=== PATIENT | male | born 1940 | race Caucasian/White ===

== ENCOUNTER 2017-09-01 08:59 | Inpatient (IN) ==
[2017-09-01] MEDS ORDERED: Ipratropium/Albuterol Neb 3 ML IH ONE (09:08)
[2017-09-01] MEDS ORDERED: methylPREDNISolone 125 MG/2 ML VIAL IVP ONE (09:17)
--- NOTE | 2017-09-01 09:43 | Emergency Department Note ---
Disposition Clinical Impression: COPD exacerbation, Pulmonary nodule, Shortness of breath Pulmonary emphysema Qualifiers: Emphysema type: panlobular Qualified Code(s): J43.1 - Panlobular emphysema Disposition: Admitted As Inpatient Condition: Serious Time of Disposition: 13:20 SOB HPI - General Chief Complaint: ED Shortness of Breath/Dyspnea Stated Complaint: ZAID Time Seen by Provider: 09/01/17 09:08 Source: patient Limitations: no limitations Nursing Notes Reviewed: Yes Vital Signs Reviewed: Yes - History of Present Illness Patient is a 77-year-old male sent in by Dr. Cota of pulmonology secondary to concerns of chest pain shortness of breath. Patient per Dr. Cota's note has pulmonary emphysema and a new pulmonary nodule. Patient states his chest pain is sharp mid substernal with radiation to left lateral rib cage and to his spine started 4 weeks ago. Patient describes no dyspnea on exertion with his pain. Patient has no change in sputum. Patient's chest pain lasted about 45 minutes and then goes away without any intervention. Patient states the pain is there its about 10/10. Patient denies diaphoresis. - Related Data Home Medications Medication Instructions Recorded Confirmed Albuterol Sulfate [Ventolin Hfa] 2 puff IH Q4H PRN 09/01/17 09/01/17 Aspirin Enteric Coated [Aspirin EC] 81 mg PO DAILY 09/01/17 09/01/17 Budesonide/Formoterol 160/4.5 2 puff IH BIDR 09/01/17 09/01/17 [Symbicort 160/4.5] Finasteride [Proscar] 5 mg PO DAILY 09/01/17 09/01/17 Tamsulosin [Flomax] 0.4 mg PO DAILY 09/01/17 09/01/17 Trazodone HCl 100 mg PO HS 09/01/17 09/01/17 Allergies Allergy/AdvReac Type Severity Reaction Status Date / Time No Known Allergies Allergy Verified 09/01/17 09:13 All systems ED: reviewed and negative except as stated. Review of Systems: As Per HPI Constitutional: Denies: fever, chills Cardiovascular: Reports: chest pain. Denies: palpitations Respiratory: Reports: cough, sputum production Gastrointestinal: Denies: abdominal pain, nausea, vomiting, diarrhea Genitourinary: Denies: urgency, dysuria, frequency Musculoskeletal: Reports: back pain. Denies: neck pain Neurological: Denies: headache Endocrine: Reports: fatigue Past Medical History - Past Medical History Attestation: Yes The following information was validated with the patient. Source: patient Medical history: Reports: COPD, other Psychiatric history: Reports: no psych history - Social History Smoking Status: Current every day smoker Smokeless Tobacco Status: No Alcohol use: Reports: none Drug use: Reports: none Physical Exam Vital Signs Temperature 97.5 F L 09/01/17 09:05 Pulse Rate 67 09/01/17 09:05 Respiratory Rate 20 09/01/17 09:05 Blood Pressure 122/77 09/01/17 09:05 O2 Sat by Pulse Oximetry 100 09/01/17 09:05 Temperature 97.5 F L 09/01/17 09:05 Pulse Rate 64 09/01/17 09:45 Respiratory Rate 24 09/01/17 09:45 Blood Pressure 139/72 09/01/17 09:45 O2 Sat by Pulse Oximetry 94 09/01/17 09:45 Oxygen Delivery Oxygen Delivery Nasal Cannula 77-year-old male who is alert and oriented 3 and appears short of breath and has mild increased work of breathing but appears to be maintaining his airway well. Patient is very thin almost cachectic appearing. - General Limitations: no limitations General appearance: alert, in no apparent distress - Head Head exam: atraumatic, normocephalic, normal inspection - Eye Eye exam: Present: normal appearance, PERRL, EOMI - ENT ENT exam: normal exam, normal oropharynx, mucous membranes moist - Neck Neck exam: Present: normal inspection, full ROM, trachea midline. Absent: tenderness - Chest Chest inspection: Present: normal inspection, symmetric chest wall rise. Absent : tenderness, rash - Respiratory Respiratory exam: Present: wheezes (Very mild wheeze right lung field) - Cardiovascular Cardiovascular exam: Present: regular rate, normal rhythm, normal heart sounds - Abdominal Exam Abdominal exam: Present: soft, Non-Tender. Absent: tenderness, distention, guarding, rebound, rigidity - Expanded Lower Extremity Exam Hip/Pelvis exam: Present: normal inspection, full ROM Upper leg exam: Present: normal inspection, full ROM Knee exam: Present: normal inspection, full ROM Lower leg exam: Present: normal inspection, full ROM Ankle exam: Present: normal inspection, full ROM Foot/toe exam: Present: normal inspection, full ROM Neurovascular/Tendon exam: Absent: motor deficit, sensory deficit, tendon deficit - Back Exam Back exam: Present: normal inspection, full ROM. Absent: tenderness, CVA tenderness (R), CVA tenderness (L) - Neurological Exam Neurological exam: Present: alert, oriented X3 - Skin Skin exam: Present: warm, dry, intact, normal color Course - Consultations Consultation #1: Dr. Crespo of Radiology states CT recommended for possible lung malignancy with increasing size of lung nodules from recent study taken by the PR. Time: 11:33 Consultation #2: Dr. Pineda the hospitalist has accepted patient for admission. Time: 13:16 Vital Signs Temperature 97.5 F L 09/01/17 09:05 Pulse Rate 67 09/01/17 09:05 Respiratory Rate 20 09/01/17 09:05 Blood Pressure 122/77 09/01/17 09:05 O2 Sat by Pulse Oximetry 100 09/01/17 09:05 Temperature 97.8 F 09/01/17 18:11 Pulse Rate 79 09/01/17 18:11 Respiratory Rate 17 09/01/17 18:11 Blood Pressure 120/61 09/01/17 18:11 O2 Sat by Pulse Oximetry 100 09/01/17 18:11 Oxygen Delivery Oxygen Delivery Nasal Cannula Shortness of Breath/Dyspnea - [facility] Narrative Medical decision making narrative: Patient was previously being seen by head of stock Dr. Cota today and was sent over to the ED for worsening shortness of breath, chest pain, Hypoxia with concerns for possible cardiac etiology and PE. Dr. Cota states patient was hypoxic with levels too low to read on pulse ox while patient was walking. Workup for cardiac issues initiated. So far patient is hypothermic and tachypneic at 24 but is on O2 and maintaining his airway. Patient had DuoNeb. And appears to be doing a little better. The rest patient vital signs are within normal ranges. So far patient's labs showed negative lactic acid and a negative BNP. Patient has no elevation of WBC as well as No anemia. Chest X-Ray 09/01/17 09:09 IMPRESSION: 1. Large left upper lobe opacity has significantly increased in size since 06/15/2017 chest x-ray, and CT chest dated 06/15/2017 (from [facility] - report not available). Findings could represent worsening pulmonary malignancy, with or without superimposed pneumonia. If this has not been previously evaluated, consider PET-CT and/or percutaneous biopsy. 2. Persistent unchanged right lower lung opacity. 3. Findings suggestive of COPD. No evidence of pneumothorax D/ / Celestino Crespo / Celestino Crespo Interpreting Provider: Celestino Crespo After discussion with radiology ordered a CTA of the chest to get better identification of a lung nodule and to rule in or out PE. Patient agrees to CTA. The patient that his creatinine is clearly elevated but will start on IV fluid hydration which is helpful in reducing insult to the kidneys, right now we have increased benefits versus risk concerning life-threatening nature of possible PE which clinically outweighs the risk of insult to kidneys at this time. Patient states he understands and agrees to treatment plan. CTA and chest shows no PE but shows enlarging of the patient's pulmonary mass with concerns for malignancy. CT shows dramatic interval increase of pulmonary nodules. Decision to admit was already discussed with the patient and he understands and agrees. Discussed patient's progress with hospitalist Dr. Pineda who agrees to patient admission. - Lab Data Lab results reviewed: Yes I reviewed the patient's lab results. Lab results narrative: Short CBC 09/01/17 Range/Units 09:35 WBC 7.8 (4.3-11.1) K/mcL Hgb 13.1 (12.9-16.9) g/dL Hct 39.9 (37.5-50.1) % Plt Count 175 (140-400) K/mcL Neutrophils # 5.7 (1.6-8.9) K/mcL BMP 09/01/17 Range/Units 10:26 Sodium 142 (136-145) mEq/L Potassium 4.0 (3.5-4.5) mEq/L Chloride 107 (98-109) mEq/L Carbon Dioxide 26 (19-29) mEq/L BUN 24 (8-26) mg/dL Creatinine 1.27 H (0.72-1.25) mg/dL Glucose 98 (70-99) mg/dL Calcium 9.5 (8.6-10.8) mg/dL Cardiac Enzymes 09/01/17 Range/Units 09:35 Troponin I 0.00 (0-0.03) ng/mL Result diagrams: 09/01/17 09:35 09/01/17 10:26 Lab Results 09/01/17 09/01/17 09/01/17 Range/Units 09:35 09:35 09:35 WBC 7.8 (4.3-11.1) K/mcL RBC 4.43 (4.19-5.50) M/mcL Hgb 13.1 (12.9-16.9) g/dL Hct 39.9 (37.5-50.1) % MCV 90.1 (83.0-100.0) fL MCH 29.6 (28.0-33.3) pg MCHC 32.8 (31.6-35.5) g/dL RDW 13.9 (11.5-14.5) % Plt Count 175 (140-400) K/mcL MPV 8.7 L (9.4-12.4) fL Immature Gran % 0.1 (0-4) % Seg Neutrophils % 73.0 % Lymphocytes % 16.3 % Monocytes % 9.5 % Eosinophils % 0.6 % Basophils % 0.5 % Neutrophils # 5.7 (1.6-8.9) K/mcL Lymphocytes # 1.3 (0.6-4.6) K/mcL Monocytes # 0.7 (0.0-1.3) K/mcL Eosinophils # 0.1 (0.0-0.6) K/mcL Basophils # 0.0 (0.0-0.2) K/mcL Sodium (136-145) mEq/L Potassium (3.5-4.5) mEq/L Chloride (98-109) mEq/L Carbon Dioxide (19-29) mEq/L BUN (8-26) mg/dL Creatinine (0.72-1.25) mg/dL Est GFR ( Amer) (> 60) Est GFR (Non-Af Amer) (> 60) BUN/Creatinine Ratio (6-26) Glucose (70-99) mg/dL Calculated Osmolality (280-300) Lactic Acid 1.6 (0.5-2.2) mmol/L Calcium (8.6-10.8) mg/dL Troponin I 0.00 (0-0.03) ng/mL B-Natriuretic Peptide (0-100) pg/mL Specimen Rejected 09/01/17 09/01/17 09/01/17 Range/Units 09:35 09:35 10:26 WBC (4.3-11.1) K/mcL RBC (4.19-5.50) M/mcL Hgb (12.9-16.9) g/dL Hct (37.5-50.1) % MCV (83.0-100.0) fL MCH (28.0-33.3) pg MCHC (31.6-35.5) g/dL RDW (11.5-14.5) % Plt Count (140-400) K/mcL MPV (9.4-12.4) fL Immature Gran % (0-4) % Seg Neutrophils % % Lymphocytes % % Monocytes % % Eosinophils % % Basophils % % Neutrophils # (1.6-8.9) K/mcL Lymphocytes # (0.6-4.6) K/mcL Monocytes # (0.0-1.3) K/mcL Eosinophils # (0.0-0.6) K/mcL Basophils # (0.0-0.2) K/mcL Sodium 142 (136-145) mEq/L Potassium 4.0 (3.5-4.5) mEq/L Chloride 107 (98-109) mEq/L Carbon Dioxide 26 (19-29) mEq/L BUN 24 (8-26) mg/dL Creatinine 1.27 H (0.72-1.25) mg/dL Est GFR ( Amer) > 60 (> 60) Est GFR (Non-Af Amer) 55 L (> 60) BUN/Creatinine Ratio 19 (6-26) Glucose 98 (70-99) mg/dL Calculated Osmolality 298 (280-300) Lactic Acid (0.5-2.2) mmol/L Calcium 9.5 (8.6-10.8) mg/dL Troponin I (0-0.03) ng/mL B-Natriuretic Peptide 24 (0-100) pg/mL Specimen Rejected Hemolyzed - Radiology Data Radiology results reviewed: Yes I reviewed the patient's radiology results. Chest X-Ray 09/01/17 09:09 IMPRESSION: 1. Large left upper lobe opacity has significantly increased in size since 06/15/2017 chest x-ray, and CT chest dated 06/15/2017 (from [facility] - report not available). Findings could represent worsening pulmonary malignancy, with or without superimposed pneumonia. If this has not been previously evaluated, consider PET-CT and/or percutaneous biopsy. 2. Persistent unchanged right lower lung opacity. 3. Findings suggestive of COPD. No evidence of pneumothorax D/ / Celestino Crespo / Celestino Crespo Interpreting Provider: Celestino Crespo Chest CTA 09/01/17 11:44 IMPRESSION: No evidence of pulmonary embolism Significant interval increase in left upper lobe mass concerning for worsening malignancy. New 14 mm pulmonary nodule within medial left upper lobe is nonspecific, but may represent additional focus of metastatic disease, or primary lung cancer. Consider PET-CT for staging and tissue diagnosis, if not already performed at another institution. Interval increasing ill-defined soft tissue density within superior medianstinum at the level of thoracic inlet currently measuring 23 x 24 mm. This could represent a metastatic deposit. Small left pleural effusion. Emphysema. D/ / Celestino Crespo / Celestino Crespo Interpreting Provider: Celestino Crespo - EKG Data EKG attestation: Yes I reviewed and interpreted this EKG. EKG results narrative: EKG taken 09/01/2017 at 0 922 shows sinus rhythm with no acute ST depressions any leads. Patient shows mild [address] segment and leads 2, and 3 this and makes criteria for STEMI but will correlate with other labs. This is not shown on previous EKG taken 02/12/2012.
[2017-09-01 09:50] LABS: Basophils % 0.5 %; Eosinophils # 0.1 K/mcL (0.0-0.6); Eosinophils % 0.6 %; Hematocrit 39.9 % (37.5-50.1); Hemoglobin 13.1 g/dL (12.9-16.9); Immature Granulocytes % 0.1 % (0-4); Lymphocytes # 1.3 K/mcL (0.6-4.6); Lymphocytes % 16.3 %; Mean Corpuscular HGB Conc 32.8 g/dL (31.6-35.5); Mean Corpuscular Hemoglobin 29.6 pg (28.0-33.3); Mean Corpuscular Volume 90.1 fL (83.0-100.0); Mean Platelet Volume 8.7 fL (9.4-12.4); Monocytes # 0.7 K/mcL (0.0-1.3); Monocytes % 9.5 %; Neutrophils # 5.7 K/mcL (1.6-8.9); Platelet Count 175 K/mcL (140-400); Red Blood Count 4.43 M/mcL (4.19-5.50); Red Cell Distribution Width 13.9 % (11.5-14.5)
[2017-09-01] MEDS ORDERED: Aspirin 81 MG TAB.CHEW PO ONE (10:03)
[2017-09-01] MEDS ORDERED: Nitroglycerin 0.4 MG TAB.SUBL SL PRN (10:04)
[2017-09-01 10:53] LABS: BUN/Creatinine Ratio 19 (6-26); Blood Urea Nitrogen 24 mg/dL (8-26); Calcium 9.5 mg/dL (8.6-10.8); Carbon Dioxide 26 mEq/L (19-29); Chloride 107 mEq/L (98-109); Glucose 98 mg/dL (70-99); Osmolality,Calculated 298 (280-300); Sodium 142 mEq/L (136-145); eGFR For African Americans > 60 (> 60); eGFR For Non-African Americans 55 (> 60)
[2017-09-01] MEDS ORDERED: 0.9 % Sodium Chloride 1,000 ML IVC ONE (11:08)
--- NOTE | 2017-09-01 11:57 | Emergency Department Note ---
START Narrative - START START: I examined this patient and my medical decision-making was reviewed with the PACKING FLOOR WORKER/PA/Advanced Practice Nurse/Resident Physician. I agree with the documented findings, disposition and treatment plan as described except to the extent set forth below. ED attending: Patient's emergency medicine resident Dr. RODRIGUEZ. Please see copy of this note for H&P evaluation and management and ED disposition. We both had independent [id number] time in contact with this patient. Briefly 77-year-old male [facility] patient referred to pulmonary for lung nodule. Was seen by pulmonary Dr. Fung this morning. Was sent to the ER for chest discomfort and hypoxia upon mild exertion. Patient stated that he had CT with contrast to look for and possibly his pulmonary nodule. Patient has pleuritic pain we will be repeating CT with contrast. Troponin is negative BNP is within normal limits CBC within normal limits. Plan is admission. Provided 40 minutes critical care services this patient. Disposition pending
[2017-09-01] MEDS ORDERED: Acetaminophen 325 MG TABLET PO PRN (14:58)
[2017-09-01] MEDS ORDERED: Naloxone 0.4 MG/ML INJ IVP PRN (14:58)
--- NOTE | 2017-09-01 15:29 | Internal Med History&Physical ---
Date of Encounter: 09/01/17 Time of Encounter: 15:15 Assessment and Plan (1) Lung mass Current visit: Yes Status: Acute Patient sent to ED from Dr. Ness's office with shortness of breath and hypoxia. CXR and CTA today showed significant increase in size of left upper lobe mass, concerning or worsening malignancy. Patient also reports decreased appetite, unplanned 10lb weight loss, night sweats, also concerning for malignancy. Consulted pulmonology, Dr. Johnson evaluated patient and recommends CT guided biopsy in interventional radiology. (2) Acute respiratory failure with hypoxia Current visit: Yes Status: Acute Patient was sent to ED today from appointment with Dr. Ness with shortness of breath and hypoxia. Patient with recent new diagnosis of COPD and hypoxia may be chronic in nature. CTA was negative for PE. CXR and CTA showed significant increase in left upper lung mass, concerning for malignancy. Given patient's risk factors of long-standing smoking and hypertension, will also get an echocardiogram. Titrate oxygen to maintain saturation > 88%. Nebulizers and antibiotics for COPD exacerbation. (3) COPD (chronic obstructive pulmonary disease) Current visit: Yes Status: Acute Patient with recent, new diagnosis of COPD. He is reporting worsening shortness of breath, dry cough, and he was hypoxic today. Duonebs QID albuterol nebulizer Q2h prn budesonide/formotorol BID Solu-medrol 40mg IVP BID and Qualifiers: COPD type: COPD with acute exacerbation Qualified Code(s): J44.1 - Chronic obstructive pulmonary disease with (acute) exacerbation (4) Tobacco abuse Current visit: Yes Status: Acute Patient smoked 2PPD for 50 years. He has cut back to only 1 cigarette per day 5 days a week. Encouraged him to keep working on smoking cessation. Smoking cessation education ordered. (5) DVT prophylaxis Current visit: Yes Status: Acute anti-embolic stockings heparin SQ TID Internal Medicine - H&P: HPI Chief complaint: shortness of breath Admitted From: Emergency Dept Plans for Post Hospital Care: Home History of present illness: Mr. Narayan is a 77 year old male with hypertension, COPD, was sent over to the ED from Dr. Ness's office with shortness of breath and hypoxia. He reports that he has had increasing shortness of breath over the last 2-3 months, and had been referred to Dr. Ness from the [place] for evaluation of a lung nodule found on CT in May. Patient was short of breath and hypoxic on his evaluation and he was sent to the ED. Patient reports occasional lightheadedness, chest pain. He also reports dry cough, night sweats, decreased appetite and unplanned weight loss of 10 lbs over the last few months. He denies any palpitations, nausea, vomiting, diarrhea or abdominal pain. Evaluation in the ED included a CXR which showed large left upper lobe opacity with significant increase in size since 06/15 exam as well as persistent , unchanged RLL opacity. CTA demonstrated no evidence of pulmonary embolism and also showed significant increase in left upper lobe mass, concerning for worsening malignancy and a new 14mm pulmonary nodule within the medial left upper lobe. Troponin was negative at 0.00. BNP was normal at 24. Creatinine was mildly elevated at 1.27. ekg was determined to be non-ischemic. On exam, patient alert and oriented in no distress. Heart had regular rate and rhythm. Lungs with distant air sounds and mild scattered wheezes. Abdomen soft, non-tender with positive bowel sounds. No peripheral edema. Past Med Surg Social Fam HX - Past Medical History Medical history: COPD, other Psychiatric history: no psych history - Past Surgical History Surgical History: vascular surgery (patient reports aneurysm repair) - Social History Smoking Status: Current every day smoker (130 pack year history) Smokeless Tobacco Status: No Alcohol use: none Drug use: none - Family History Mother History Unknown: Yes Adopted: No (patient lost touch with all family in his youth) Internal Medicine - H&P: Meds Albuterol Sulfate [Ventolin Hfa] 2 puff IH Q4H PRN 09/01/17 [History] Aspirin Enteric Coated [Aspirin EC] 81 mg PO DAILY 09/01/17 [History] Budesonide/Formoterol 160/4.5 [Symbicort 160/4.5] 2 puff IH BIDR 09/01/17 [ History] Finasteride [Proscar] 5 mg PO DAILY 09/01/17 [History] Tamsulosin [Flomax] 0.4 mg PO DAILY 09/01/17 [History] Trazodone HCl 100 mg PO HS 09/01/17 [History] 3 Allergy/AdvReac Type Severity Reaction Status Date / Time No Known Allergies Allergy Verified 09/01/17 09:13 All Systems PM: A 10-system review of systems was performed and is negative for pertinent findings except as documented above in the HPI. - Constitutional Constitutional: anorexia, night sweats, weight loss, no chills, no fever(s) - EENT Eyes: no change in vision, no discharge, no pain, no photophobia Ears: no ear discharge, no ear pain, no tinnitus Nose, mouth and throat: no dysphagia, no nasal discharge, no neck pain, no sore throat - Cardiovascular Cardiovascular ROS IM: chest pain, dyspnea, dyspnea on exertion, lightheadedness , no diaphoresis, no palpitations, no syncope - Respiratory Respiratory: cough, dyspnea, dyspnea on exertion, pain with cough, no hemoptysis , no wheezing, no excessive phlegm production - Gastrointestinal Gastrointestinal: no abdominal pain, no diarrhea, no hematemesis, no hematochezia, no melena, no nausea, no vomiting - Musculoskeletal Musculoskeletal ROS IM: no numbness, no tingling - Integumentary Integumentary IM: no rash, no unusual bruising - Neurological Neurological ROS: no confusion, no convulsions, no focal weakness, no numbness, no tingling, no tremor(s) - Hematologic/Lymphatic Hematologic/Lymphatic: no easy bruising - Constitutional Vitals: Temp Pulse Resp BP Pulse Ox 97.5 F L 62 16 121/117 100 09/01/17 14:27 09/01/17 14:27 09/01/17 14:27 09/01/17 14:27 09/01/17 14:27 General appearance: Present: A&O X 3, pleasant, no acute distress - Head Head exam: Present: atraumatic, normocephalic - Eye Eye exam: Present: PERRL, conjuntiva pink, sclera anicteric Pupils: Present: PERRL - Neck Neck exam general surgery: Present: supple, trachea midline. Absent: lymphadenopathy - Respiratory Respiratory exam: Present: decreased breath sounds, wheezes. Absent: accessory muscle use, rales, rhonchi - Cardiovascular Cardiovascular exam: Present: RRR, +S1, +S2. Absent: diastolic murmur, gallop, rubs, systolic murmur - GI/Abdominal GI/Abdominal exam: Present: normal bowel sounds, soft, no peritoneal signs. Absent: distended, tenderness - Extremities Exam Extremities exam: Present: warm, radial pulses palpable and symmetrical. Absent : calf tenderness, cyanotic, pedal edema - Neurological Exam Neurological exam: Present: CN II-XII intact, oriented X3, no focal deficits. Absent: pronater drift, facial droop, speech deficit - Skin Skin exam: Present: dry, intact Internal Med - H&P Results - Labs CBC & Chem 7: 09/01/17 09:35 09/01/17 10:26 Labs: All Lab Results (24 Hours) 09/01/17 09/01/17 09/01/17 Range/Units 09:35 09:35 09:35 WBC 7.8 (4.3-11.1) K/mcL RBC 4.43 (4.19-5.50) M/mcL Hgb 13.1 (12.9-16.9) g/dL Hct 39.9 (37.5-50.1) % MCV 90.1 (83.0-100.0) fL MCH 29.6 (28.0-33.3) pg MCHC 32.8 (31.6-35.5) g/dL RDW 13.9 (11.5-14.5) % Plt Count 175 (140-400) K/mcL MPV 8.7 L (9.4-12.4) fL Immature Gran % 0.1 (0-4) % Seg Neutrophils % 73.0 % Lymphocytes % 16.3 % Monocytes % 9.5 % Eosinophils % 0.6 % Basophils % 0.5 % Neutrophils # 5.7 (1.6-8.9) K/mcL Lymphocytes # 1.3 (0.6-4.6) K/mcL Monocytes # 0.7 (0.0-1.3) K/mcL Eosinophils # 0.1 (0.0-0.6) K/mcL Basophils # 0.0 (0.0-0.2) K/mcL Sodium (136-145) mEq/L Potassium (3.5-4.5) mEq/L Chloride (98-109) mEq/L Carbon Dioxide (19-29) mEq/L BUN (8-26) mg/dL Creatinine (0.72-1.25) mg/dL Est GFR ( Amer) (> 60) Est GFR (Non-Af Amer) (> 60) BUN/Creatinine Ratio (6-26) Glucose (70-99) mg/dL Calculated Osmolality (280-300) Lactic Acid 1.6 (0.5-2.2) mmol/L Calcium (8.6-10.8) mg/dL Troponin I 0.00 (0-0.03) ng/mL B-Natriuretic Peptide (0-100) pg/mL Specimen Rejected 09/01/17 09/01/17 09/01/17 Range/Units 09:35 09:35 10:26 WBC (4.3-11.1) K/mcL RBC (4.19-5.50) M/mcL Hgb (12.9-16.9) g/dL Hct (37.5-50.1) % MCV (83.0-100.0) fL MCH (28.0-33.3) pg MCHC (31.6-35.5) g/dL RDW (11.5-14.5) % Plt Count (140-400) K/mcL MPV (9.4-12.4) fL Immature Gran % (0-4) % Seg Neutrophils % % Lymphocytes % % Monocytes % % Eosinophils % % Basophils % % Neutrophils # (1.6-8.9) K/mcL Lymphocytes # (0.6-4.6) K/mcL Monocytes # (0.0-1.3) K/mcL Eosinophils # (0.0-0.6) K/mcL Basophils # (0.0-0.2) K/mcL Sodium 142 (136-145) mEq/L Potassium 4.0 (3.5-4.5) mEq/L Chloride 107 (98-109) mEq/L Carbon Dioxide 26 (19-29) mEq/L BUN 24 (8-26) mg/dL Creatinine 1.27 H (0.72-1.25) mg/dL Est GFR ( Amer) > 60 (> 60) Est GFR (Non-Af Amer) 55 L (> 60) BUN/Creatinine Ratio 19 (6-26) Glucose 98 (70-99) mg/dL Calculated Osmolality 298 (280-300) Lactic Acid (0.5-2.2) mmol/L Calcium 9.5 (8.6-10.8) mg/dL Troponin I (0-0.03) ng/mL B-Natriuretic Peptide 24 (0-100) pg/mL Specimen Rejected Hemolyzed - Diagnostic Studies Chest x-ray Additional comments: Chest X-Ray 09/01/17 09:09 IMPRESSION: 1. Large left upper lobe opacity has significantly increased in size since 06/15/2017 chest x-ray, and CT chest dated 06/15/2017 (from [facility] - report not available). Findings could represent worsening pulmonary malignancy, with or without superimposed pneumonia. If this has not been previously evaluated, consider PET-CT and/or percutaneous biopsy. 2. Persistent unchanged right lower lung opacity. 3. Findings suggestive of COPD. No evidence of pneumothorax D/ / Celestino Crespo / Celestino Crespo Interpreting Provider: Celestino Crespo CT scan - chest Additional comments: Chest CTA 09/01/17 11:44 IMPRESSION: No evidence of pulmonary embolism Significant interval increase in left upper lobe mass concerning for worsening malignancy. New 14 mm pulmonary nodule within medial left upper lobe is nonspecific, but may represent additional focus of metastatic disease, or primary lung cancer. Consider PET-CT for staging and tissue diagnosis, if not already performed at another institution. Interval increasing ill-defined soft tissue density within superior medianstinum at the level of thoracic inlet currently measuring 23 x 24 mm. This could represent a metastatic deposit. Small left pleural effusion. Emphysema. D/ / Celestino Crespo / Celestino Crespo Interpreting Provider: Celestino Crespo
--- NOTE | 2017-09-01 15:39 | Pulmonology Consult Note ---
Date of Encounter: 09/01/17 Time of Encounter: 15:32 Assessment and Plan (1) Acute respiratory failure with hypoxia Current Visit: Yes Status: Acute My suspicion with this patient is that he has severe underlying hypoxemia with exertion and this was uncovered today but I doubt that this is a new phenomenon for the patient. CTA was performed in the ED negative for PE his brain atretic peptide was also not elevated which makes CHF less likely but still possible. I suspect he has some degree of underlying coronary artery disease but how much that is impacting his current presentation if at all is unclear at this time although troponin is negative. I suspect that the overall cause of his hypoxemia is related to underlying pulmonary emphysema and lung cancer. Recommend supplemental oxygen to keep saturation greater than 88% at all times there is no need to keep saturation in this patient greater than 92%. Command formal echocardiogram to evaluate for any evidence of underlying heart failure as well as possible pulmonary hypertension although not suspicious from CTA which showed a normal size of the pulmonary artery and right ventricle. (2) Lung mass Current Visit: Yes Status: Acute He has a large approximately 5.3 x 3.7 lung mass in the left upper lobe this would be easily accessed by CT-guided biopsy performed by interventional radiology (unfortunately this could not be performed until Monday at the earliest). I do not see any significant lymphadenopathy that would be amenable to bronchoscopy with endobronchial ultrasound and fine-needle aspiration. Clearly the patient would not have to necessarily remain in the hospital to have this procedure done however if it could be done early on Monday this would certainly decrease any further wait time in the initial evaluation and workup of his presumed lung cancer given delayed that has already happened I favor this approach (3) COPD (chronic obstructive pulmonary disease) Current Visit: Yes Status: Acute Patient clearly has radiographic evidence of emphysema and subjective feelings of dyspnea. He does not have any increase in sputum production or change in color he does have increased shortness of breath which I suspect is more disease progression per se as opposed to acute exacerbation. Nevertheless he could likely benefit from at least a short course of antral steroids and scheduled bronchodilators I do not think that he would necessarily benefit from antimicrobials at this time. Please start prednisone 40 mg daily by mouth I favor approaching 40 mg daily for 5 days then stop this could eventually be tapered over a couple of weeks if patient has significant benefit Schedule duo nebs every 4-6 hours with supplemental albuterol treatments on an as-needed basis He can be discharged with a metered-dose inhaler such as Symbicort 160/4.52 puffs twice a day and he should have teaching by the respiratory therapist in the proper use of this medication. Additionally he should be discharged with a short acting beta agonist such as albuterol "rescue inhaler" Qualifiers: Emphysema type: unspecified Qualified Code(s): J43.9 - Emphysema, unspecified (4) Pleural effusion Current Visit: Yes Status: Acute This is as very small left-sided pleural effusion which at least periodically could represent a malignant pleural effusion however given the size I am dubious that this is the case. Elasticized is such that it would not be possible to perform bedside thoracentesis to aspirate this at the very most he would need CT-guided biopsy do not favor this in the acute setting especially given his underlying emphysema I think that the risk benefit ratio here favors continued monitoring (5) Elevated serum creatinine Current Visit: Yes Status: Acute Unclear what the patient's baseline serum creatinine has however it is elevated today be worthwhile to determine if the [facility] has previous records related to this. Given his recent contrast load and baseline renal dysfunction a low rate infusion of normal saline over the next 24 hours to prevent contrast-induced nephropathy is a reasonable approach. (6) Tobacco abuse Current Visit: Yes Status: Acute I counseled the patient on the need to abstain from tobacco completely. Encouragingly he is down to a cigarette every 4-5 days he does have nicotine patches at home and they help he is not currently having any cravings but he should be provided with nicotine replacement as needed he seems highly motivated to stop and I recommend patient enroll in smoking cessation group therapy at the [facility] which is a very effective program. 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 Because of the degree of hypoxemia on this test he was referred to the emergency department for further evaluation. Initially he was being evaluated for a left upper lobe lung mass this was a pleural-based lesion that was first identified at the [facility] in May and noted to around 3.7cm however he did not have any follow-up with regards to this lesion until today's clinic appointment. Clinically is noted that he has had at least a 10 pound weight loss as of late and has had increasing shortness of breath with intermittent chest pain this is not associated with exertion he denies any sort of hemoptysis night sweats fevers chills joint pains in the interim. Notable for him is that about a year ago he was able to walk about a block without any problem now he is unable to walk even short distances without getting dyspneic. In the emergency department a CT angiogram was performed which was negative for filling defect but notable for interval increase in size of the left upper lobe lung mass and additional increase in size of lung nodules as well concerning for primary lung malignancy He started smoking at the age of 11 and has smoked up to 2 packs a day. He served in [place] (after the conflict) and in [place] (during the conflict) where he likely had some exposure to agent orange. 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 He does not have any personal history of malignancy nor family history of lung cancer that he is aware of. He does not drink or use illicit drugs he does not have any exotic pets no recent travel outside the [place] or sick contacts. Past Med Surg Social Fam HX - Past Medical History Medical history: COPD, other Psychiatric history: no psych history - Social History Smoking Status: Current every day smoker Smokeless Tobacco Status: No Alcohol use: none Drug use: none Medications and Allergies Albuterol Sulfate [Ventolin Hfa] 2 puff IH Q4H PRN 09/01/17 [History] Aspirin Enteric Coated [Aspirin EC] 81 mg PO DAILY 09/01/17 [History] Budesonide/Formoterol 160/4.5 [Symbicort 160/4.5] 2 puff IH BIDR 09/01/17 [ History] Finasteride [Proscar] 5 mg PO DAILY 09/01/17 [History] Tamsulosin [Flomax] 0.4 mg PO DAILY 09/01/17 [History] Trazodone HCl 100 mg PO HS 09/01/17 [History] 3 Allergy/AdvReac Type Severity Reaction Status Date / Time No Known Allergies Allergy Verified 09/01/17 09:13 All Systems: A 10-system review of systems was performed and is negative for pertinent findings except as documented above in the HPI. Physical Examination Vital Signs: Vital Signs, Last 4 Hours Temp Pulse Resp BP Pulse Ox 09/01/17 14:27 97.5 F L 62 16 121/117 100 09/01/17 14:06 20 118/61 09/01/17 13:30 76 22 115/86 98 General appearance: no acute distress, alert, other (He is thin but not cachectic appearing ) Eyes: nonicteric ENT: oropharynx moist, oropharynx dry Neck: no lymphadenopathy Effort: normal Auscultation: bilateral: diminished breath sounds Cardiovascular: regular rate and rhythm Gastrointestinal: normoactive bowel sounds Integumentary: normal Extremities: no cyanosis, no edema, no clubbing Musculoskeletal: no deformities normal mental status, non-focal exam mood appropriate Results - Laboratory Findings CBC and BMP: 09/01/17 09:35 09/01/17 10:26 Abnormal lab findings: Abnormal lab results MPV 8.7 fL (9.4-12.4) L 09/01/17 09:35 Creatinine 1.27 mg/dL (0.72-1.25) H 09/01/17 10:26 Est GFR (Non-Af Amer) 55 (> 60) L 09/01/17 10:26 - Diagnostic Findings Chest x-ray: report reviewed, image reviewed CT scan - chest: report reviewed, image reviewed Consult Discharge Plan - Plan Referrals: NONE,PCP [Primary Care Provider] - Marycruz Palmer [Family Provider] -
[2017-09-01] MEDS ORDERED: Azithromycin 500 MG in D5% in Water 250 ML IVPB SCH (16:00)
[2017-09-01] MEDS: Ipratropium/Albuterol Neb 3 ML IH SCH ×2 (16:01→22:26)
[2017-09-01] MEDS: MethylPREDNISolone 40 MG/ML VIAL IVP SCH (17:34)
[2017-09-01] MEDS: traZODone 50 MG TABLET PO SCH (20:33)
[2017-09-01] MEDS: Budesonide/Formoterol 160/4.5 MDI IH SCH (22:28)
[2017-09-02] MEDS: *HR* Heparin 5,000 UNIT/ML VIAL SQ SCH ×4 (00:06→20:27)
[2017-09-02] MEDS: Ipratropium/Albuterol Neb 3 ML IH SCH ×4 (04:30→22:21)
[2017-09-02] MEDS: MethylPREDNISolone 40 MG/ML VIAL IVP SCH (05:52)
[2017-09-02 07:28] LABS: BUN/Creatinine Ratio 21 (6-26); Blood Urea Nitrogen 26 mg/dL (8-26); Calcium 9.2 mg/dL (8.6-10.8); Carbon Dioxide 25 mEq/L (19-29); Chloride 108 mEq/L (98-109); Glucose 207 mg/dL (70-99); Osmolality,Calculated 299 (280-300); Potassium 4.6 mEq/L (3.5-4.5); Sodium 139 mEq/L (136-145); eGFR For African Americans > 60 (> 60); eGFR For Non-African Americans 56 (> 60)
[2017-09-02 07:44] LABS: Basophils % 0.1 %; Hematocrit 34.6 % (37.5-50.1); Immature Granulocytes % 0.4 % (0-4); Lymphocytes # 0.6 K/mcL (0.6-4.6); Lymphocytes % 3.3 %; Mean Corpuscular HGB Conc 32.9 g/dL (31.6-35.5); Mean Corpuscular Hemoglobin 29.4 pg (28.0-33.3); Mean Corpuscular Volume 89.2 fL (83.0-100.0); Mean Platelet Volume 8.9 fL (9.4-12.4); Monocytes % 4.5 %; Platelet Count 187 K/mcL (140-400); Red Blood Count 3.88 M/mcL (4.19-5.50); Red Cell Distribution Width 13.7 % (11.5-14.5); Segmented Neutrophils % 91.7 %
[2017-09-02 07:45] LABS: Hemoglobin 11.4 g/dL (12.9-16.9); Monocytes # 0.8 K/mcL (0.0-1.3); Neutrophils # 15.2 K/mcL (1.6-8.9)
--- NOTE | 2017-09-02 09:29 | Pulmonology Progress Note ---
Date of Encounter: 09/02/17 Time of Encounter: 09:27 Assessment and Plan (1) Acute respiratory failure with hypoxia Current Visit: Yes Status: Acute Continue to wean oxygen to keep saturation greater than 88%-92% at all times (2) Lung mass Current Visit: Yes Status: Acute This is suspicious for primary lung malignancy plan for CT-guided biopsy on Monday with interventional radiology (3) COPD (chronic obstructive pulmonary disease) Current Visit: Yes Status: Acute Possible acute exacerbation continue enteral steroids prednisone 40 mg 5 days consideration of a longer taper based upon clinical course. Continue scheduled bronchodilators Qualifiers: COPD type: COPD with acute exacerbation Qualified Code(s): J44.1 - Chronic obstructive pulmonary disease with (acute) exacerbation (4) Pleural effusion Current Visit: Yes Status: Acute This is a small left-sided pleural effusion recommend monitoring at this time (5) Elevated serum creatinine Current Visit: Yes Status: Acute Stable overnight. Concern for contrast-induced nephropathy givenlikely underlying chronic kidney injury with plan for 24 hours of infusion of crystalloid (normal saline) (6) Tobacco abuse Current Visit: Yes Status: Acute Tobacco abuse counseling given continue nicotine replacement as needed (7) DVT prophylaxis Current Visit: Yes Status: Acute Recommend chemical DVT prophylaxis while inpatient unless contraindication arises Subjective Principal diagnosis: Hypoxic Respiratory Failure Interval history: Says in general breathing has improved overnight. Oxygen saturation has been excellent on 2 L nasal cannula Piter can be weaned down further. Remains afebrile. His only complaint is that he has been Without food for a possible procedure Objective PUL Vital signs: Last Vital Signs Temp 97.8 F 09/02/17 07:00 Pulse 71 09/02/17 07:00 Resp 16 09/02/17 07:00 BP 102/63 09/02/17 07:00 Pulse Ox 100 09/02/17 07:00 General appearance: no acute distress Auscultation: bilateral: clear Cardiovascular: regular rate and rhythm Extremities: no cyanosis, no edema, no clubbing normal mental status, non-focal exam Results - Laboratory Findings CBC and BMP: 09/02/17 06:54 09/02/17 06:54 Abnormal lab findings: Abnormal lab results WBC 16.6 K/mcL (4.3-11.1) H D 09/02/17 06:54 RBC 3.88 M/mcL (4.19-5.50) L 09/02/17 06:54 Hgb 11.4 g/dL (12.9-16.9) L D 09/02/17 06:54 Hct 34.6 % (37.5-50.1) L 09/02/17 06:54 MPV 8.9 fL (9.4-12.4) L 09/02/17 06:54 Neutrophils # 15.2 K/mcL (1.6-8.9) H 09/02/17 06:54 Potassium 4.6 mEq/L (3.5-4.5) H 09/02/17 06:54 Est GFR (Non-Af Amer) 56 (> 60) L 09/02/17 06:54 Glucose 207 mg/dL (70-99) H 09/02/17 06:54 - Clinical Findings Intake & Output: Intake & Output 09/01/17 09/02/17 09/02/17 23:59 07:59 15:59 Intake Total 250 / 250 0 / 0 Output Total 400 / 400 Balance 250 / 250 -400 / -400 Weight 56.518 kg - VTE Documentation of Mechanical Device: Graduated compression elastic hosiery Consult Discharge Plan - Plan Referrals: NONE,PCP [Primary Care Provider] - Marycruz Palmer [Family Provider] -
[2017-09-02] MEDS: Finasteride 5 MG TABLET PO SCH (09:36)
[2017-09-02] MEDS: Aspirin Enteric Coated 81 MG Tablet PO SCH (09:36)
--- NOTE | 2017-09-02 10:58 | Internal Med Progress Note ---
Date of Encounter: 09/02/17 Time of Encounter: 10:56 - Assessment and plan (1) Lung mass Current Visit: Yes Status: Acute Assessment and plan: Pulmonary consultation appreciated patient to be scheduled for CTA guided lung mass biopsy on Monday by Interventional radiology (2) Pulmonary nodule Current Visit: Yes Status: Chronic (3) COPD exacerbation Current Visit: Yes Status: Acute Assessment and plan: Continue systemic steroids, bronchodilator support O2 supplementation monitor O2 sat, goal O2 sat: 89-92% (4) Pulmonary emphysema Current Visit: Yes Status: Chronic Qualifiers: Emphysema type: unspecified Qualified Code(s): J43.9 - Emphysema, unspecified (5) Pleural effusion Current Visit: Yes Status: Acute Assessment and plan: stable, will continue to monitor (6) Elevated serum creatinine Current Visit: Yes Status: Resolved Assessment and plan: resolved at this time will continue to monitor (7) Tobacco abuse Current Visit: Yes Status: Acute Assessment and plan: Smoking cessation counseling provided pt reports of cutting down and trying to quit refused nicotine replacement therapy (8) DVT prophylaxis Current Visit: Yes Status: Acute Assessment and plan: Heparin SQ - Subjective Interval history: Patient seen and examined at bedside. Resting comfortably in bed and denies any distress at this time. Tentative CTA guided lung mass biopsy on Monday by IR. - Constitutional Vitals: Temp Pulse Resp BP Pulse Ox 97.8 F 71 16 102/63 100 09/02/17 07:00 09/02/17 07:00 09/02/17 07:00 09/02/17 07:00 09/02/17 07:00 General appearance: Present: cooperative, A&O X 3, pleasant, no acute distress, underweight - Head Head exam: Present: atraumatic, normocephalic - Eye Eye exam: Present: conjuntiva pink, sclera anicteric - Respiratory Respiratory exam: Absent: respiratory distress, wheezes - Cardiovascular Cardiovascular exam: Present: RRR, +S1, +S2. Absent: diastolic murmur, gallop, rubs, systolic murmur - GI/Abdominal GI/Abdominal exam: Present: normal bowel sounds, soft, no peritoneal signs. Absent: distended, tenderness - Extremities Exam Extremities exam: Present: warm, radial pulses palpable and symmetrical. Absent : calf tenderness, cyanotic, pedal edema - Neurological Exam Neurological exam: Present: alert, oriented X3 - Psychiatric Psychiatric exam: Present: normal affect, normal mood Internal Medicine: Result - Labs CBC & Chem 7: 09/02/17 06:54 09/02/17 06:54 Labs: Short CBC 09/02/17 Range/Units 06:54 WBC 16.6 H D (4.3-11.1) K/mcL Hgb 11.4 L D (12.9-16.9) g/dL Hct 34.6 L (37.5-50.1) % Plt Count 187 (140-400) K/mcL Neutrophils # 15.2 H (1.6-8.9) K/mcL BMP 09/02/17 06:54 Sodium 139 Potassium 4.6 H Chloride 108 Carbon Dioxide 25 BUN 26 Creatinine 1.25 Glucose 207 H Calcium 9.2 Cardiac Enzymes 09/01/17 09/01/17 Range/Units 15:16 21:31 Troponin I 0.01 0.00 (0-0.03) ng/mL - Impressions Impressions Echocardiogram 09/02/17 21:07 Impressions: LVEF 60-65%. No pulmonary hypertension. Mild left ventricular diastolic dysfunction. Left Ventricular Wall Motion: Rest Echo Findings All wall segments showed normal motion. Findings: Study Quality * Technically adequate exam. Right Ventricle * Normal right ventricular structure and function. Left Atrium * Normal left atrial size. Right Atrium * Normal right atrial size. Aortic Valve * Trileaflet aortic valve with normal function. Mitral Valve * Normal mitral valve structure and function. Interatrial Septum * No evidence of PFO by color Doppler. Aorta * Normally sized aortic root. Pericardium * The pericardium appears normal. ECG Findings * Normal sinus rhythm. Tricuspid Valve * Trace tricuspid regurgitation. * No tricuspid stenosis. * Tricuspid valve not well visualized. * Estimated RVSP is 14 mmHg. * No pulmonary hypertension. * Estimated RA pressure is 5-8 mmHg. Left Ventricle * Mild left ventricular diastolic dysfunction. * LVEF 60-65%. IVC * Normal IVC dimensions and inspiratory collapse. - VTE Documentation of Mechanical Device: Graduated compression elastic hosiery Consult Discharge Plan - Plan Referrals: NONE,PCP [Primary Care Provider] - Marycruz Palmer [Family Provider] -
[2017-09-02] MEDS: Budesonide/Formoterol 160/4.5 MDI IH SCH ×2 (11:08→22:20)
[2017-09-02] MEDS: traZODone 50 MG TABLET PO SCH (20:27)
[2017-09-03] MEDS: Ipratropium/Albuterol Neb 3 ML IH SCH ×4 (04:19→22:26)
[2017-09-03] MEDS: *HR* Heparin 5,000 UNIT/ML VIAL SQ SCH ×3 (05:43→21:49)
[2017-09-03 08:02] LABS: Basophils % 0.1 %; Eosinophils % 0.1 %; Hematocrit 33.7 % (37.5-50.1); Hemoglobin 11.1 g/dL (12.9-16.9); Immature Granulocytes % 0.3 % (0-4); Lymphocytes # 1.7 K/mcL (0.6-4.6); Lymphocytes % 10.5 %; Mean Corpuscular HGB Conc 32.9 g/dL (31.6-35.5); Mean Corpuscular Volume 91.1 fL (83.0-100.0); Mean Platelet Volume 8.7 fL (9.4-12.4); Monocytes # 0.8 K/mcL (0.0-1.3); Monocytes % 5.2 %; Neutrophils # 13.4 K/mcL (1.6-8.9); Platelet Count 163 K/mcL (140-400); Red Cell Distribution Width 14.3 % (11.5-14.5); Segmented Neutrophils % 83.8 %
[2017-09-03 08:06] LABS: Prothrombin Time 10.9 Seconds (9.4-12.1)
[2017-09-03 08:15] LABS: BUN/Creatinine Ratio 23 (6-26); Blood Urea Nitrogen 25 mg/dL (8-26); Calcium 8.9 mg/dL (8.6-10.8); Carbon Dioxide 29 mEq/L (19-29); Chloride 109 mEq/L (98-109); Glucose 77 mg/dL (70-99); Magnesium 1.7 mg/dL (1.6-2.6); Osmolality,Calculated 293 (280-300); Phosphorous 2.7 mg/dL (2.3-4.7); Potassium 4.5 mEq/L (3.5-4.5); Sodium 140 mEq/L (136-145); eGFR For African Americans > 60 (> 60); eGFR For Non-African Americans > 60 (> 60)
[2017-09-03] MEDS: Finasteride 5 MG TABLET PO SCH (10:28)
[2017-09-03] MEDS: predniSONE 20 MG TABLET PO SCH (10:28)
[2017-09-03] MEDS: Aspirin Enteric Coated 81 MG Tablet PO SCH (10:28)
--- NOTE | 2017-09-03 10:55 | Internal Med Progress Note ---
Date of Encounter: 09/03/17 Time of Encounter: 10:53 - Assessment and plan (1) Lung mass Current Visit: Yes Status: Acute Assessment and plan: Pulmonary consultation appreciated patient to be scheduled for CTA guided lung mass biopsy on Monday by Interventional radiology. NPO after midnight for biopsy in am (2) Pulmonary nodule Current Visit: Yes Status: Chronic (3) COPD exacerbation Current Visit: Yes Status: Acute Assessment and plan: Continue systemic steroids, bronchodilator support O2 supplementation monitor O2 sat, goal O2 sat: 89-92% (4) Pulmonary emphysema Current Visit: Yes Status: Chronic Qualifiers: Emphysema type: unspecified Qualified Code(s): J43.9 - Emphysema, unspecified (5) Pleural effusion Current Visit: Yes Status: Acute Assessment and plan: stable, will continue to monitor (6) Elevated serum creatinine Current Visit: Yes Status: Resolved Assessment and plan: resolved at this time will continue to monitor (7) Tobacco abuse Current Visit: Yes Status: Acute Assessment and plan: Smoking cessation counseling provided pt reports of cutting down and trying to quit refused nicotine replacement therapy (8) DVT prophylaxis Current Visit: Yes Status: Acute Assessment and plan: Heparin SQ - Subjective Interval history: Patient seen and examined at bedside. Resting comfortably in bed and denies any distress at this time. No overnight issues reported. Tentative CTA guided lung mass biopsy on Monday by IR. - Constitutional Vitals: Temp Pulse Resp BP Pulse Ox 97.7 F 60 18 126/73 99 09/03/17 07:35 09/03/17 07:35 09/03/17 07:35 09/03/17 07:35 09/03/17 07:35 General appearance: Present: cooperative, A&O X 3, pleasant, no acute distress, underweight - Head Head exam: Present: atraumatic, normocephalic - Eye Eye exam: Present: conjuntiva pink, sclera anicteric - Respiratory Respiratory exam: Present: CTAB. Absent: accessory muscle use, rales, rhonchi, wheezes - Cardiovascular Cardiovascular exam: Present: RRR, +S1, +S2. Absent: diastolic murmur, gallop, rubs, systolic murmur - GI/Abdominal GI/Abdominal exam: Present: normal bowel sounds, soft, no peritoneal signs. Absent: distended, tenderness - Extremities Exam Extremities exam: Present: warm, radial pulses palpable and symmetrical. Absent : calf tenderness, cyanotic, pedal edema - Neurological Exam Neurological exam: Present: alert, oriented X3, no focal deficits. Absent: pronater drift, facial droop, speech deficit - Psychiatric Psychiatric exam: Present: normal affect, normal mood Internal Medicine: Result - Labs CBC & Chem 7: 09/03/17 07:24 09/03/17 07:24 Labs: Short CBC 09/03/17 Range/Units 07:24 WBC 16.0 H (4.3-11.1) K/mcL Hgb 11.1 L (12.9-16.9) g/dL Hct 33.7 L (37.5-50.1) % Plt Count 163 (140-400) K/mcL Neutrophils # 13.4 H (1.6-8.9) K/mcL BMP 09/03/17 07:24 Sodium 140 Potassium 4.5 Chloride 109 Carbon Dioxide 29 BUN 25 Creatinine 1.10 Glucose 77 Calcium 8.9 - ABG Interpretation ABG results: PT/INR, D-dimer PT 10.9 Seconds (9.4-12.1) 09/03/17 07:24 - VTE Documentation of Mechanical Device: Graduated compression elastic hosiery Consult Discharge Plan - Plan Referrals: [facility] [Non-Partnered Physician] -
[2017-09-03] MEDS: Budesonide/Formoterol 160/4.5 MDI IH SCH ×2 (11:27→22:26)
--- NOTE | 2017-09-03 20:08 | Electrocardiograph Report ---
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
[2017-09-03] MEDS: traZODone 50 MG TABLET PO SCH (21:49)
[2017-09-04] MEDS: *HR* Heparin 5,000 UNIT/ML VIAL SQ SCH ×3 (03:38→21:12)
[2017-09-04] MEDS: Ipratropium/Albuterol Neb 3 ML IH SCH ×4 (04:04→23:07)
[2017-09-04 04:14] LABS: Hematocrit 36.2 % (37.5-50.1); Hemoglobin 11.8 g/dL (12.9-16.9); Immature Granulocytes % 0.5 % (0-4); Lymphocytes # 1.1 K/mcL (0.6-4.6); Mean Corpuscular HGB Conc 32.6 g/dL (31.6-35.5); Mean Corpuscular Hemoglobin 29.1 pg (28.0-33.3); Mean Corpuscular Volume 89.2 fL (83.0-100.0); Mean Platelet Volume 8.6 fL (9.4-12.4); Monocytes # 0.6 K/mcL (0.0-1.3); Monocytes % 4.1 %; Neutrophils # 11.6 K/mcL (1.6-8.9); Platelet Count 189 K/mcL (140-400); Red Blood Count 4.06 M/mcL (4.19-5.50); Red Cell Distribution Width 14.1 % (11.5-14.5); Segmented Neutrophils % 87.4 %
[2017-09-04 04:31] LABS: BUN/Creatinine Ratio 21 (6-26); Blood Urea Nitrogen 27 mg/dL (8-26); Carbon Dioxide 26 mEq/L (19-29); Chloride 106 mEq/L (98-109); Glucose 118 mg/dL (70-99); Magnesium 1.8 mg/dL (1.6-2.6); Osmolality,Calculated 292 (280-300); Phosphorous 2.7 mg/dL (2.3-4.7); Potassium 4.1 mEq/L (3.5-4.5); Sodium 138 mEq/L (136-145); eGFR For African Americans > 60 (> 60); eGFR For Non-African Americans 54 (> 60)
[2017-09-04] MEDS: predniSONE 20 MG TABLET PO SCH (09:35)
[2017-09-04] MEDS: Aspirin Enteric Coated 81 MG Tablet PO SCH (09:35)
[2017-09-04] MEDS: Finasteride 5 MG TABLET PO SCH (09:35)
--- NOTE | 2017-09-04 09:39 | Pulmonology Progress Note ---
Date of Encounter: 09/04/17 Time of Encounter: 08:00 Assessment and Plan (1) COPD exacerbation Current Visit: Yes Status: Resolved Patient is feeling better and continue current treatment. (2) Lung mass Current Visit: Yes Status: Acute Awaiting for lung biopsy. Subjective Principal diagnosis: Hypoxic Respiratory Failure Interval history: Patient is feeling better and awaiting for CT guided biopsy. Objective PUL Vital signs: Last Vital Signs Temp 97.6 F 09/04/17 07:54 Pulse 65 09/04/17 07:54 Resp 15 09/04/17 07:54 BP 157/74 09/04/17 07:54 Pulse Ox 96 09/04/17 07:54 General appearance: no acute distress Eyes: nonicteric Neck: supple Effort: normal Auscultation: bilateral: diminished breath sounds Percussion: bilateral: not dull Cardiovascular: regular rate and rhythm Gastrointestinal: normoactive bowel sounds Extremities: no cyanosis normal mental status, non-focal exam mood appropriate Results - Laboratory Findings CBC and BMP: 09/04/17 03:32 09/04/17 03:32 PT/INR, D-dimer PT 10.9 Seconds (9.4-12.1) 09/03/17 07:24 Abnormal lab findings: Abnormal lab results WBC 13.3 K/mcL (4.3-11.1) H 09/04/17 03:32 RBC 4.06 M/mcL (4.19-5.50) L 09/04/17 03:32 Hgb 11.8 g/dL (12.9-16.9) L 09/04/17 03:32 Hct 36.2 % (37.5-50.1) L 09/04/17 03:32 MPV 8.6 fL (9.4-12.4) L 09/04/17 03:32 Neutrophils # 11.6 K/mcL (1.6-8.9) H 09/04/17 03:32 BUN 27 mg/dL (8-26) H 09/04/17 03:32 Creatinine 1.28 mg/dL (0.72-1.25) H 09/04/17 03:32 Est GFR (Non-Af Amer) 54 (> 60) L 09/04/17 03:32 Glucose 118 mg/dL (70-99) H 09/04/17 03:32 - Clinical Findings Intake & Output: Intake & Output 09/03/17 09/04/17 09/04/17 23:59 07:59 15:59 Intake Total 250 / 250 0 / 0 Output Total 550 / 550 475 / 475 Balance -300 / -300 -475 / -475 Weight 56.88 kg - VTE Documentation of Mechanical Device: Graduated compression elastic hosiery Consult Discharge Plan - Plan Referrals: [facility]P [Non-Partnered Physician] -
[2017-09-04] MEDS: amLODIPine 5 MG TABLET PO SCH (09:40)
[2017-09-04] MEDS: Budesonide/Formoterol 160/4.5 MDI IH SCH ×2 (10:50→23:09)
[2017-09-04] MEDS ORDERED: *HR* Midazolam HCl 2 MG/2 ML VIAL IVP PRN (12:35)
[2017-09-04] MEDS ORDERED: *HR* FentaNYL (PF) 100 MCG/2 ML VIAL IVP PRN (12:35)
[2017-09-04] MEDS ORDERED: *HR* FentaNYL (PF) 100 MCG/2 ML VIAL ONE (12:42)
[2017-09-04] MEDS ORDERED: *HR* Midazolam HCl 2 MG/2 ML VIAL ONE (12:42)
[2017-09-04] MEDS ORDERED: 0.9 % Sodium Chloride 500 ML ONE (12:42)
--- NOTE | 2017-09-04 15:34 | Internal Med Progress Note ---
Date of Encounter: 09/04/17 Time of Encounter: 15:31 - Assessment and plan (1) Lung mass Current Visit: Yes Status: Acute Assessment and plan: Pulmonary consultation appreciated s/p lung biopsy today (09/04/17) discharge pending arrangement of home oxygen pt to follow up with pulmonary as outpatient for lung biopsy results (2) Pulmonary nodule Current Visit: Yes Status: Chronic (3) COPD exacerbation Current Visit: Yes Status: Resolved Assessment and plan: Continue systemic steroids, bronchodilator support O2 supplementation monitor O2 sat, goal O2 sat: 89-92% (4) Pulmonary emphysema Current Visit: Yes Status: Chronic Qualifiers: Emphysema type: unspecified Qualified Code(s): J43.9 - Emphysema, unspecified (5) Pleural effusion Current Visit: Yes Status: Acute Assessment and plan: stable, will continue to monitor (6) Elevated serum creatinine Current Visit: Yes Status: Resolved Assessment and plan: Mild elevation in creatinine noted, noted to be hypertensive. SMITH can be secondary to hypertension started Amlodipine 5mg PO qd will continue to monitor (7) Tobacco abuse Current Visit: Yes Status: Acute Assessment and plan: Smoking cessation counseling provided pt reports of cutting down and trying to quit refused nicotine replacement therapy (8) DVT prophylaxis Current Visit: Yes Status: Acute - Subjective Interval history: Patient seen and examined at bedside. Resting comfortably in bed and denies any distress at this time. No overnight issues reported. s/p Lung biopsy. 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 D/C in am once home oxygen has been arranged - Constitutional Vitals: Temp Pulse Resp BP Pulse Ox 98.3 F 86 10 156/81 96 09/04/17 11:02 09/04/17 12:59 09/04/17 12:59 09/04/17 12:59 09/04/17 15:22 General appearance: Present: cooperative, A&O X 3, pleasant, no acute distress, underweight - Head Head exam: Present: atraumatic, normocephalic - Eye Eye exam: Present: conjuntiva pink, sclera anicteric - Respiratory Respiratory exam: Present: CTAB. Absent: respiratory distress, wheezes - Cardiovascular Cardiovascular exam: Present: RRR, +S1, +S2. Absent: diastolic murmur, gallop, rubs, systolic murmur - GI/Abdominal GI/Abdominal exam: Present: normal bowel sounds, soft, no peritoneal signs. Absent: distended, tenderness - Extremities Exam Extremities exam: Present: warm, radial pulses palpable and symmetrical. Absent : calf tenderness, cyanotic, pedal edema - Neurological Exam Neurological exam: Present: alert, oriented X3 - Psychiatric Psychiatric exam: Present: normal affect, normal mood Internal Medicine: Result - Labs CBC & Chem 7: 09/04/17 03:32 09/04/17 03:32 - ABG Interpretation ABG results: PT/INR, D-dimer PT 10.9 Seconds (9.4-12.1) 09/03/17 07:24 - Impressions Impressions Chest X-Ray 09/04/17 14:00 IMPRESSION: No evidence of pneumothorax following left lung biopsy. D/ / 09/04/2017 14:28:09 Jose Beckwith MD / galo Interpreting Provider: Jose Beckwith MD - VTE Documentation of Mechanical Device: Graduated compression elastic hosiery Consult Discharge Plan - Plan [facility]errals: [facility] [Non-Partnered Physician] -
--- NOTE | 2017-09-04 17:33 | Pre-Sedation Evaluation ---
Pre-sedation evaluation - Pre-sedation checklist Date of procedure: 09/04/17 Procedure: lung bx Recent Vitals: Last Vital Signs Temp 98.0 F 09/04/17 15:33 Pulse 69 09/04/17 15:33 Resp 17 09/04/17 15:33 BP 138/66 09/04/17 15:33 Pulse Ox 100 09/04/17 15:33 Airway Assessment: Patient can open mouth completely, TMJ function normal, Micrognathia (under-bite, receding chin) absent, Neck with adequate range of motion ASA Classification *see protocol: CLASS II-Mild systemic disease Plan of Care: Pt appropriate candidate for procedure/moderate/conscious sedation , Risks/benefits of procedure/sedation discussed w/ patient/family, If not NPO; Risk of intake outweiged by necessity to perform procedure
--- NOTE | 2017-09-04 17:33 | IR Procedure Note ---
Date of procedure: 09/04/17 Consent Obtained: Verbal consent, Written consent Timeout: Correct patient and procedure verified, Correct site verified, Time out performed, Skin prep completed Local anesthetic: Lidocaine 1% Indications: lung mass Procedure Performed: CT guided bx Site/Technique: left Results/Findings: 4 cores Estimated blood loss (cc): 1 Complications: None; Tolerated procedure well Post Procedure Treatment Plan: CXR in 1 hour
[2017-09-04] MEDS: traZODone 50 MG TABLET PO SCH (21:12)
[2017-09-05] MEDS: Ipratropium/Albuterol Neb 3 ML IH SCH ×3 (04:25→15:50)
[2017-09-05] MEDS: *HR* Heparin 5,000 UNIT/ML VIAL SQ SCH ×2 (05:07→15:49)
[2017-09-05 06:59] LABS: Basophils % 0.1 %; Eosinophils % 0.1 %; Hematocrit 36.4 % (37.5-50.1); Hemoglobin 11.8 g/dL (12.9-16.9); Immature Granulocytes % 0.5 % (0-4); Lymphocytes # 1.7 K/mcL (0.6-4.6); Lymphocytes % 15.2 %; Mean Corpuscular HGB Conc 32.4 g/dL (31.6-35.5); Mean Corpuscular Hemoglobin 29.4 pg (28.0-33.3); Mean Corpuscular Volume 90.5 fL (83.0-100.0); Mean Platelet Volume 8.7 fL (9.4-12.4); Monocytes # 0.7 K/mcL (0.0-1.3); Monocytes % 6.1 %; Neutrophils # 8.5 K/mcL (1.6-8.9); Platelet Count 187 K/mcL (140-400); Red Blood Count 4.02 M/mcL (4.19-5.50)
[2017-09-05 07:13] LABS: BUN/Creatinine Ratio 22 (6-26); Blood Urea Nitrogen 22 mg/dL (8-26); Calcium 9.4 mg/dL (8.6-10.8); Carbon Dioxide 29 mEq/L (19-29); Chloride 105 mEq/L (98-109); Glucose 97 mg/dL (70-99); Magnesium 1.9 mg/dL (1.6-2.6); Osmolality,Calculated 291 (280-300); Phosphorous 2.8 mg/dL (2.3-4.7); Potassium 4.4 mEq/L (3.5-4.5); Sodium 139 mEq/L (136-145); eGFR For African Americans > 60 (> 60); eGFR For Non-African Americans > 60 (> 60)
[2017-09-05] MEDS: predniSONE 20 MG TABLET PO SCH (08:18)
[2017-09-05] MEDS: Aspirin Enteric Coated 81 MG Tablet PO SCH (08:19)
[2017-09-05] MEDS: amLODIPine 5 MG TABLET PO SCH (08:19)
[2017-09-05] MEDS: Finasteride 5 MG TABLET PO SCH (08:38)
[2017-09-05] MEDS: Budesonide/Formoterol 160/4.5 MDI IH SCH (10:34)
--- NOTE | 2017-09-05 12:00 | Discharge Summary ---
Date of Encounter: 09/05/17 Time of Encounter: 11:51 - Discharge Diagnosis (1) Lung mass Priority: Primary Status: Acute (2) Pulmonary nodule Priority: Primary Status: Chronic (3) COPD exacerbation Priority: Secondary Status: Resolved (4) Pulmonary emphysema Priority: Secondary Status: Chronic Qualifiers: Emphysema type: unspecified Qualified Code(s): J43.9 - Emphysema, unspecified (5) Pleural effusion Priority: Secondary Status: Acute (6) Elevated serum creatinine Priority: Secondary Status: Resolved (7) Tobacco abuse Priority: Secondary Status: Acute (8) DVT prophylaxis Priority: Secondary Status: Acute - Discharge Medications Prescriptions: amLODIPine [Norvasc] 5 mg PO DAILY #30 tablet predniSONE [PredniSONE] 40 mg PO DAILY #2 tablet Home Medications: Albuterol Sulfate [Ventolin Hfa] 2 puff IH Q4H PRN 09/01/17 [History] Aspirin Enteric Coated [Aspirin EC] 81 mg PO DAILY 09/01/17 [History] Budesonide/Formoterol 160/4.5 [Symbicort 160/4.5] 2 puff IH BIDR 09/01/17 [ History] Finasteride [Proscar] 5 mg PO DAILY 09/01/17 [History] Tamsulosin [Flomax] 0.4 mg PO DAILY 09/01/17 [History] Trazodone HCl 100 mg PO HS 09/01/17 [History] amLODIPine [Norvasc] 5 mg PO DAILY #30 tablet 09/05/17 [Rx] predniSONE [PredniSONE] 40 mg PO DAILY #2 tablet 09/05/17 [Rx] Allergies/Adverse Reactions: 3 Allergy/AdvReac Type Severity Reaction Status Date / Time No Known Allergies Allergy Verified 09/01/17 09:13 Date of admission: 09/04/17 13:52 Primary care physician: PCP NONE Consults: Pulmonology: Dr. Ness and Dr. De La Rosa IR Discharging clinician: Jordyn Oshea Anticipated date of discharge: 09/05/17 - Patient Status Disposition: Home, Self-Care Condition: Good Functional capacity at discharge: independent ambulation Overall status at discharge: patient is back to baseline - Discharge Instructions [facility] With: [facility] [Non-Partnered Physician] - Additional Instructions: Please follow up with your primary care physician and alteration tailor apprentice within one week after your discharge from the hospital. Please continue oral prednisone as prescribed for two more days. You were noted to have elevated blood pressure during your hospitalization due to which Amlodipine 5mg once a day. Please closely monitor your blood pressure at home, hold this medication if you are noted to have systolic blood pressure less than 100. Please inform your primary care physician of this addition. Please keep a daily log of your blood pressure readings and take this log with your to your primary care physician's appointment. Please wear oxygen at all times. Resume all home medications as prescribed by your primary care physician. Smoking cessation is highly advised. - Diet and Activity Activity: resume usual activities as tolerated, wear oxygen at all times, wear oxygen at night Diet: low salt diet Hospital course: Mr. Narayan is a 77 year old male with PMH of COPD, HTN who was sent to the hospital from Dr. Ness's office for further evaluation of a lung mass. Pt was seen by Dr. Rosas and started on Prednisone for COPD exacerbation. He was also noted to require O2 supplementation throughout the course of his hospitalization. He underwent CT guided lung mass biopsy done by IR. He underwent six minute walk test and qualified for home oxygen. Pt is hemodynamically stable and denies any discomfort. He will be discharged to home with home oxygen and follow up with PCP and alteration tailor apprentice after discharge. his lung biopsy results are pending and will be reviewed by the PCP and alteration tailor apprentice. Pt demonstrates understanding of his diagnosis and agrees with the discharge care and plan. - Time Spent with Patient Total time spent providing and/or coordinating discharge services: Less than 30 minutes - Constitutional Vitals: Temp Pulse Resp BP Pulse Ox 97.5 F L 79 18 120/65 96 09/05/17 10:49 09/05/17 10:49 09/05/17 10:49 09/05/17 10:49 09/05/17 10:49 General appearance: Present: cooperative, A&O X 3, pleasant, no acute distress, underweight - Head Head exam: Present: atraumatic, normocephalic - Eye Eye exam: Present: conjuntiva pink, sclera anicteric - Respiratory Respiratory exam: Present: CTAB. Absent: accessory muscle use, rales, rhonchi, wheezes - Cardiovascular Cardiovascular exam: Present: RRR, +S1, +S2. Absent: diastolic murmur, gallop, rubs, systolic murmur - GI/Abdominal GI/Abdominal exam: Present: normal bowel sounds, soft, no peritoneal signs. Absent: distended, tenderness - Extremities Exam Extremities exam: Present: warm, radial pulses palpable and symmetrical. Absent : calf tenderness, cyanotic, pedal edema - Neurological Exam Neurological exam: Present: alert, oriented X3 - Psychiatric Psychiatric exam: Present: normal affect, normal mood - VTE Documentation of Mechanical Device: Graduated compression elastic hosiery
[2017-09-05 16:21] VITALS: BP 145/79
== END 2017-09-05 17:30 | disposition home or self-care (01) | DRG 190 ==
LOC: 2ANU 08:59 → EMEROO 08:59 → SUATTDRO 13:26 → 2ANU 14:08
PROVIDERS: ADMIT Hospitalist; ATTEND Internal Medicine